=== PATIENT | male | born 1980 | race Caucasian/White ===

== ENCOUNTER 2021-06-28 22:32 | Observation (INO) | payer OTHER, SELFPAY ==
--- NOTE | ~2021-06-28 | CT_ITS ---
EXAMINATION: CT soft tissue neck w con EXAM DATE: 06/29/2021 00:48 INDICATION: Swelling neck. TECHNIQUE: Spiral CT of the neck was performed following intravenous injection of 75 mL Omnipaque 350 . Axial, coronal and sagittal images were reviewed. The dose-length product (DLP) for this examinat ion was 686.86 mGy-cm. The exposure was tailored according to patient size (auto mA exposure control ), and iterative reconstruction (ASIR) was used as additional dose reduction technique. There is no prior study for comparison. FINDINGS: There is an anterior lower neck peripheral soft tissue density with central low density wit hin the subcutaneous fat, should be clinically obvious distorting the contour just left of midline. T his measures 3.1 x 2.2 cm, is superficial to the platysmas muscle. Differential diagnosis includes ab scess, enlarged sebaceous cyst with or without infection, necrotic or metastatic lymphadenopathy. The re is no definite overlying skin thickening to suggest skin cancer. Please clinically correlate for a ppropriate further workup. No other neck masses or evidence of lymphadenopathy. The superior mediasti num, prevascular space is also unremarkable. Slightly larger appearance to the left tonsillar adenoidal tissue. Epiglottis is normal in thickness. The thyroid gland is unremarkable. The submandibular and parotid glands are symmetric. The air way is unremarkable. Parapharyngeal and pre-glottic fat planes are preserved. The opacified vascu lature is patent. The orbits are unremarkable. Visualized sinuses and mastoid air cells are well aerated. Lung apices are clear. There is cervical spondylosis. IMPRESSION: Left anterior lower neck mass like region, differential diagnosis including abscess, seba ceous cyst with or without infection, necrotic lymph node or other malignancy. Please clinically alee elate for appropriate further workup or treatment. Reviewed, dictated and finalized at location A. IMPRESSION: Left anterior lower neck mass like region, differential diagnosis i ncluding abscess, sebaceous cyst with or without infection, necrotic lymph node or other malignancy. Please clinically correlate for appropriate further jacklyn p or treatment.
[2021-06-28 23:18] VITALS: BP 147/78; PULSE 67; RESP 16; TEMP 36.3; O2SAT 99
[2021-06-28 23:34] VITALS: BP 147/78; PULSE 78; RESP 16; TEMP 36.8; O2SAT 99
[2021-06-28 23:53] LABS: Basophils Absolute Auto 0.1 K/mm3 (0.0-0.1); Basophils Percent Auto 0.4 % (0.2-1.2); Eosinophils Absolute Auto 0.2 K/mm3 (0-0.3); Eosinophils Percent Auto 1.1 % (0-4.4); Hematocrit 41.9 % (42.0-52.0); Hemoglobin 13.9 g/dL (14.0-18.0); Immature Granulocyte Absolute 0.06 K/mm3 (0.00-0.031); Immature Granulocyte Percent A 0.4 % (0-0.5); Lymphocytes Absolute Auto 1.68 K/mm3 (0.9-3.2); Lymphocytes Percent Auto 11.4 % (18.3-44.2); Mean Corpuscular HGB Conc 33.2 g/dl (32-36); Mean Corpuscular Hemoglobin 31.5 pg (26-34); Mean Platelet Volume 10.4 fl (7.4-10.4); Monocytes Absolute Auto 0.8 K/mm3 (0.1-0.6); Monocytes Percent Auto 5.7 % (2.6-8.5); Platelet Count Result 242 k/mm3 (150-375); Red Blood Count 4.41 M/mm3 (4.6-6.20); White Blood Count 14.8 K/mm3 (4.5-10.0)
[2021-06-29] VITALS (10 sets, daily range): BP systolic 108–148; BP diastolic 64–97; PULSE 54–82; RESP 10–18; TEMP 36.1–36.8; O2SAT 97–100; BMI 29.9
[2021-06-29 00:08] LABS: Lactic Acid Reflex 1.4 mmol/L (0.7-2.1)
[2021-06-29 00:09] LABS: Alanine Aminotransferase 20 U/L (4-50); Albumin Level 4.9 g/dL (3.5-5.1); Alkaline Phosphatase 65 U/L (38-126); Anion Gap 14 mmol/L (8-16); Aspartate Amino Transferase 28 U/L (17-59); Bilirubin,Total 0.6 mg/dL (0.2-1.3); Blood Urea Nitrogen 13 mg/dL (9-20); Calcium 9.9 mg/dL (8.4-10.2); Carbon Dioxide 23 mmol/L (22-30); Chloride 105 mmol/L (98-107); Estimated CRCL calculation 126 ml/min; Estimated Glomerular Filt Rate > 60; Glucose 113 mg/dL (65-110); Potassium 3.7 mmol/L (3.4-5.0); Sodium 142 mmol/L (137-145)
--- NOTE | 2021-06-29 01:57 | ED.GENADULT ---
HPI - General Adult General Chief complaint: Wound/Laceration Stated complaint: abscess on neck x 1 week Time Seen by Provider: 06/28/21 23:29 Source: patient Mode of arrival: ambulatory Limitations: no limitations History of Present Illness HPI narrative: 41-year-old with no major medical problems here with complains of pain and swelling and redness to the neck for past 1 week. Patient states that he has a small cyst for past 10 years now it is getting bigger and it is now red and draining. Denies any fever or chills. No history of trauma. Onset (ago): week(s) (1) Location: neck Severity: moderate Quality: aching Pain Consistency: constant Relieving factors: none Exacerbating factors: none Associated symptoms: denies other symptoms Related Data Allergies Allergy/AdvReac Type Severity Reaction Status Date / Time No Known Allergies Allergy Verified 06/28/21 23:57 Review of Systems Review of Systems: All systems reviewed & are unremarkable except as noted in HPI and below Constitutional: Constitutional: Reports no additional constitutional complaints Eyes: Eyes: Reports no additional eye complaints ENT: Reports system reviewed and no additional complaints, except as documented Cardiovascular: Cardiovascular: Reports no additional cardiovascular complaints Respiratory: Respiratory: Reports no additional respiratory complaints Gastrointestinal: Gastrointestinal: Reports no additional gastrointestinal complaints Musculoskeletal: Musculoskeletal: Reports no additional musculoskeletal complaints Exam Narrative: GENERAL: Well-appearing, well-nourished, and in no acute distress. HEAD: Normocephalic, atraumatic. EYES: PERRLA and EOMI.. NECK: Supple. About 3.5 cm cyst on the left side of the neck mobile the skin is red and warm with purulent drainage. CHEST: Clear to auscultation. No respiratory distress. HEART: Regular rate and rhythm. No murmur heard. Normal peripheral pulses. ABDOMEN: Soft, nontender, nondistended, normal active bowel sounds. EXTREMITIES: Normal range of motion. No edema. SKIN: Warm, dry, no rash. NEURO: No focal deficits. Alert and oriented x3. PSYCH: Normal mood and affect. Course Course Emergency Course: Inform patient and s about the lab work and CT , will admit to the hospital as he is unable to tolerate the procedure in the ER. Discussed with Dr. Pacheco agreed to admit the patient Vital Signs Vital signs: Vital Signs Temperature 36.3 C L 06/28/21 23:18 Pulse Rate 67 11/03/21 23:18 Respiratory Rate 16 06/28/21 23:18 Blood Pressure 147/78 H 06/28/21 23:18 Pulse Oximetry 99 06/28/21 23:18 Temperature 36.8 C 06/28/21 23:34 Pulse Rate 78 06/28/21 23:34 Respiratory Rate 16 06/28/21 23:34 Blood Pressure 147/78 H 06/28/21 23:34 Pulse Oximetry 99 06/28/21 23:34 Procedures Abscess I/D neck: Date of Incision: 06/29/21 Side (if applicable): left Sedation/analgesia: none Local Anesthetic: lidocaine 1% Amount of anesthesia used (mL): 5 Technique: incised with #11 blade Amount of fluid expressed (mL): 3 Irrigation: No I&D Results: Other (Sebaceous material) Abcess I&D Additional Comments: Patient was unable to tolerate the procedure in the ER. Medical Decision Making Vital Signs Vital Signs: Vital Signs Temperature 36.3 C L 06/28/21 23:18 Pulse Rate 67 06/28/21 23:18 Respiratory Rate 16 06/28/21 23:18 Blood Pressure 147/78 H 06/28/21 23:18 Pulse Oximetry 99 06/28/21 23:18 Temperature 36.8 C 06/28/21 23:34 Pulse Rate 78 06/28/21 23:34 Respiratory Rate 16 06/28/21 23:34 Blood Pressure 147/78 H 06/28/21 23:34 Pulse Oximetry 99 06/28/21 23:34 Lab Data Result diagrams: 06/28/21 23:45 06/28/21 23:45 Labs: Lab Results 06/28/21 06/28/21 06/28/21 Range/Units 23:45 23:45 23:45 WBC 14.8 H (4.5-10.0) K/mm3 RBC 4.41
[2021-06-29] MEDS: KETOROLAC 30 MG/ML VIAL (*BKC) IV PUSH (02:06)
[2021-06-29] MEDS: CLINDAMYCIN 600 MG/D5W 50 ML 600 MG/50 ML PIGGYBACK 100 MG IVPB (02:06)
[2021-06-29] MEDS: LIDOCAINE HCL 1% LOCAL INJ 20 ML VIAL (02:07)
--- NOTE | 2021-06-29 02:07 | PC.NURSE ---
md administered lidocaine
--- NOTE | 2021-06-29 04:31 | ADMGEN ---
This patient, Nazario Robb, was admitted to [facility] Surg Room [id number]. Patient/family oriented to hospital policies and general routines including ID bracelet, bed and alarms, visiting hours, pain management, procedures, bathroom and other care routines, personal items, smoking policy, room service/diet, and visiting hours. Information on how to activate the Rapid Response Team has been discussed. Patient/Family are encouraged to report perceived risks to care and to ask questions if they do not understand what they are told or what they should do.
[2021-06-29] MEDS: SODIUM CHLORIDE 0.9% IV 1,000 ML 75 ML IV CONT (05:00)
--- NOTE | 2021-06-29 10:04 | PM.IMHP ---
H&P: HPI History of Present Illness Date/Time: 06/29/21 10:04 Chief Complaint: Infected area of abnormal skin left anterior neck. Narrative: patient is a pleasant overweight 41-year-old white male who presented to the emergency room last evening with a enlarged infected cystic lesion on the anterior left neck. He states that this is been present for several years. About a year ago it was bout half the size it is now. He presented to the ER because of the following findings: 41-year-old with no major medical problems here with complains of pain and swelling and redness to the neck for past 1 week. Patient states that he has had a gradually enlarging cyst on his neck for past 10 years now it got fairly suddenly bigger and it is now red and draining. Denies any fever or chills. No history of trauma. It has recently began draining some slightly yellowish bloody fluid Onset (ago): week(s) (1) Location: Lt. anterior neck Severity: moderate Quality: aching Pain Consistency: constant Relieving factors: none Exacerbating factors: none Review of Systems Review of Systems: All systems reviewed & are unremarkable except as noted in HPI and below (HPI) Constitutional: Constitutional: Reports as per HPI, Denies chills and Denies fever(s) Eyes: Eyes: Reports no additional eye complaints ENT: Reports Normal hearing present and Denies dizziness Cardiovascular: Cardiovascular: Reports no additional cardiovascular complaints, Denies chest pain and Denies irregular heart rhythm Respiratory: Respiratory: Reports no additional respiratory complaints Comments: History of 30-40 pack year of smoking. No recent shortness of breath or pneumonia Gastrointestinal: Gastrointestinal: Reports no additional gastrointestinal complaints, Denies abdominal pain and Denies bloating Genitourinary: Genitourinary: Denies hematuria Musculoskeletal: Musculoskeletal: Denies back pain Integumentary/Breasts: Skin/Breast: Reports system reviewed and no additional complaints, except as docu Neurologic: Reports Normal hearing present, Denies Abnormal speech present, Denies confusion and Denies dizziness Psychiatric: Psychiatric: Reports no additional psychiatric complaints and Denies confusion Endocrine: Endocrine: Reports no additional endocrine complaints Hematologic/Lymphatic: Hematologic/Lymphatic: Denies easy bleeding and Denies easy bruising Allergic/Immunologic: Allergic/Immunologic: Reports no additional allergic/immunologic complaints PMFSH Past Medical History Medical History Abscess of skin of neck Chronic GERD (Unknown) Infected sebaceous cyst (Unknown) Obesity Smoker (Unknown) Social History Social History Smoking packs per day: 1.5 Smoking cigarettes per day: 30.0 Years smoked: 30 Smoking pack-years: 45.00 Smoking status: Current every day smoker Tobacco type: cigarettes Alcohol intake: never Substance use type: marijuana Spiritual care concerns: No Meds Home Medications and Allergies Home Medications Medication Instructions Recorded Confirmed Type No Home Medications 06/29/21 06/29/21 History Allergies Allergy/AdvReac Type Severity Reaction Status Date / Time No Known Allergies Allergy Verified 06/28/21 23:57 Vital Signs Vital Signs - 24 hr 06/28/21 23:18 06/28/21 23:34 06/29/21 04:20 Temperature 36.3 C L 36.8 C Pulse Rate 67 78 77 Respiratory Rate 16 16 16 Blood Pressure 147/78 H 147/78 H 146/78 H Pulse Oximetry 99 99 99 06/29/21 04:25 Temperature 36.1 C L Pulse Rate 58 L Respiratory Rate 18 Blood Pressure 148/91 H Pulse Oximetry 100 Exam Const: General: cooperative, healthy appearing, comfortable, no acute distress, well developed, alert and awake; No confusion Orientation/consciousness: patient oriented x3 and No confusion HENMT: Head: normal to inspection Ears: hearing grossly normal bilaterally Face a
[2021-06-29] MEDS: NICOTINE (*PBKC) 21 MG PATCH 1 PATCH TRANSDERM (11:23)
--- NOTE | 2021-06-29 11:45 | WPDANESEPPF ---
Anes - Initial Pre Proc Eval Procedure: Operation Date: 06/29/21 13:00 Proposed Procedures p Incision and Drainage Left Neck Abscess - Remy Pacheco MD <Smith Hernandes MD - Last Filed: 07/11/21 12:24> Date/Time: 06/29/21 11:45 <Smith Hernandes MD - Last Filed: 07/11/21 12:24> Surgeon: Remy Pacheco MD <Smith Hernandes MD - Last Filed: 07/11/21 12:24> Pre Op Diagnosis: infected sebaceous cyst of the neck <Smith Hernandes MD - Last Filed: 07/11/21 12:24> Patient Data Age: 41 Gender: M Height: 1.91 m Weight: 108.86 kg <Smith Hernandes MD - Last Filed: 07/11/21 12:24> Last Vital Signs Temp 97.0 F L 06/29/21 04:25 Pulse 58 L 06/29/21 04:25 Resp 18 06/29/21 04:25 BP 148/91 H 06/29/21 04:25 Pulse Ox 100 06/29/21 04:25 <Smith Hernandes MD - Last Filed: 07/11/21 12:24> Allergies Allergy/AdvReac Type Severity Reaction Status Date / Time No Known Allergies Allergy Verified 06/28/21 23:57 <Smith Hernandes MD - Last Filed: 07/11/21 12:24> Home Medications Medication Instructions Recorded Confirmed Type hydrocodone-acetaminophen 1 tablet PO Q6H PRN #14 tablet 06/29/21 Rx sulfamethoxazole-trimethoprim 1 tablet PO Q12H #10 tablet 06/29/21 Rx [Bactrim DS] <Smith Hernandes MD - Last Filed: 07/11/21 12:24> Laboratory Tests 06/28/21 06/28/21 06/28/21 23:45 23:45 23:45 WBC 14.8 K/mm3 H K/mm3 (4.5-10.0) RBC 4.41 M/mm3 L M/mm3 (4.6-6.20) Hgb 13.9 g/dL L g/dL (14.0-18.0) Hct 41.9 % L % (42.0-52.0) MCV 95.0 fl fl (80-100) MCH 31.5 pg pg (26-34) MCHC 33.2 g/dl g/dl (32-36) RDW 12.0 % % (11.5-14.5) Plt Count 242 k/mm3 k/mm3 (150-375) MPV 10.4 fl fl (7.4-10.4) Immature Gran % (Auto) 0.4 % % (0-0.5) Neut % (Auto) 81.0 % H % (45.5-73.1) Lymph % (Auto) 11.4 % L % (18.3-44.2) [place] % (Auto) 5.7 % % (2.6-8.5) Eos % (Auto) 1.1 % % (0-4.4) Baso % (Auto) 0.4 % % (0.2-1.2) Lymph # (Auto) 1.68 K/mm3 K/mm3 (0.9-3.2) [place] # (Auto) 0.8 K/mm3 H K/mm3 (0.1-0.6) Eos # (Auto) 0.2 K/mm3 K/mm3 (0-0.3) Baso # (Auto) 0.1 K/mm3 K/mm3 (0.0-0.1) Abs Immat Gran (auto) 0.06 K/mm3 H K/mm3 (0.00-0.031) Absolute Neuts (auto) 12.0 K/mm3 H K/mm3 (1.3-6.7) Absolute Nucleated RBC 0.0 K/mm3 K/mm3 (0.0-0.012) Nucleated RBC % 0.0 % % (0.0-0.2) Sodium 142 mmol/L mmol/L (137-145) Potassium 3.7 mmol/L mmol/L (3.4-5.0) Chloride 105 mmol/L mmol/L (98-107) Carbon Dioxide 23 mmol/L mmol/L (22-30) Anion Gap 14 mmol/L mmol/L (8-16) BUN 13 mg/dL mg/dL (9-20) Creatinine 0.80 mg/dL mg/dL (0.7-1.3) Estim Creat Clear Calc 126 ml/min ml/min Estimated GFR > 60 (59 - ) Glucose 113 mg/dL H mg/dL (65-110) Lactic Acid 1.4 mmol/L mmol/L (0.7-2.1) Calcium 9.9 mg/dL mg/dL (8.4-10.2) Total Bilirubin 0.6 mg/dL mg/dL (0.2-1.3) AST 28 U/L U/L (17-59) ALT 20 U/L U/L (4-50) Alkaline Phosphatase 65 U/L U/L (38-126) Total Protein 8.0 g/dL g/dL (6.3-8.2) Albumin 4.9 g/dL g/dL (3.5-5.1) <Smith Hernandes MD - Last Filed: 07/11/21 12:24> Patient hx anesthesia problems: none <Daniel Dowling MD - Last Filed: 06/29/21 13:31> Family hx anesthesia problems: none <Daniel Dowling MD - Last Filed: 06/29/21 13:31> Results Review: All pre-operative results and documents have been reviewed as part of the pre-operative evaluation. <Smith Hernandes MD - Last Filed: 07/11/21 12:24> PMFSH Past Medical History Medical History: Medical History Abscess of skin of neck Chronic G
[2021-06-29] MEDS: LACTATED RINGERS 1,000 ML 30 ML IV CONT (11:59)
--- NOTE | 2021-06-29 14:32 | WPDHPUPDATE1 ---
History and Physical Update Update Date/Time: 06/29/21 14:32 History and Physical has been reviewed, including an updated exam of the patient. There are NO changes in the patient's condition. He did become slightly anxious on the floor prior to coming to the preop area. He received a 1 time 0.5 Xanax with a sip water. Risks, benefits, and alternatives have been discussed and questions answered. Patient agrees to proceed with procedure.
--- NOTE | 2021-06-29 15:22 | W.PM.PROC2 ---
Procedure Note - Detailed Date of Procedure 06/29/21 Pre-op Diagnosis infected epidermal cyst of the left neck Post-op Diagnosis same Procedure Performed Incision and drainage with excisional biopsy of the central overlying skin/ infected suspected epidermal cyst left neck Surgeon Remy Pacheco MD Mr[employer] Controller REBECCA Berry, [place] 1st assist Anesthesia general (Via LMA by Dr. Khari Hernandes) and local Indications Over the last week patient has developed a approximately 4 x 3 cm raised infected epidermal cyst on the left anterior neck with significant surrounding erythema with signs of infection. CT shows an elevated lymph nodes deep to this but no signs of penetration of the platysma muscle. Findings A large swollen infected epidermal cyst. It had significant yellow grumous material within it that was removed and it was packed Description of Procedure The area of the abscess was marked and time-out performed confirming patient and site of required I and D. Following this the area was prepped with chlorhexidine. The area was draped and local anesthetic infiltrated directly over the area of swelling and abscess formation. Because it appeared to be epidermal cyst and was so large and the skin so heaped up I felt I could excise the central portion of the overlying skin and it would fall down a close in nicely. Therefore, in order to get a biopsy make sure this was not something to worry about I outlined an elliptical excision about 1 cm wide of the skin directly overlying this cyst. Local anesthetic was infiltrated along these lines. I used a 15 blade knife to excise the skin and some of the underlying cyst cavity. Since Dr. Mesa at the ED last night opened this initially with a small slit under local and took a culture I decided not to send another culture. Following this the area was packed with 1/2 inch iodoform Nu Gauze. The area was then covered with 4x4s and tape. Implants none Estimated Blood Loss -7.0 Drains No Packing Yes (Half-inch iodoform Nu Gauze) Pathology yes (Ellipse of skin overlying the suspected epidermal cyst, left neck) Complications No immediate complications Condition stable Disposition PACU
[2021-06-29] MEDS: HYDROcodone/acetaminophen (*CRX) 5-325 MG TABLET 1 TAB PO (16:37)
--- NOTE | 2021-06-29 18:32 | PM.DS ---
DS: Admitting Diagnosis Discharge Date 06/29/2021 Admitting Diagnosis large inflamed epidermal cyst with abscess left side of neck DS: Discharge Diagnosis Discharge Diagnosis (1) Obesity: Code(s): E66.9 - Obesity, unspecified Status: Acute Assessment and Plan: Patient instructed to try to stay on all held heart healthy diet. (2) Smoker: Onset Date: Unknown Code(s): F17.200 - Nicotine dependence, unspecified, uncomplicated Status: Acute Assessment and Plan: discussed with patient poor we will wound healing well smoking and provided with information regarding cessation of smoking. Discussed this with his significant other after his surgery also. (3) Chronic GERD: Onset Date: Unknown Code(s): K21.9 - Gastro-esophageal reflux disease without esophagitis Status: Acute Assessment and Plan: Courage the patient to see a PCP and get up back on acid lowering drugs for this if needed. Needs further evaluation. (4) Infected sebaceous cyst: Onset Date: Unknown Code(s): L72.3 - Sebaceous cyst; L08.9 - Local infection of the skin and subcutaneous tissue, unspecified Status: Acute Assessment and Plan: This was the main reason for his hospitalization. He could not tolerate attempted incision drainage in the ER. Therefore he was admitted he has his anxiety treated with Xanax and he had a anesthesia for excision of the central part of the skin overlying his large epidermal cyst along with a VAC UH in the groin most material for hand infection and packing. He seems significantly improved afterwards. (5) Abscess of skin of neck: Code(s): L02.11 - Cutaneous abscess of neck Status: Acute Assessment and Plan: See infected sebaceous cyst above. Culture was done in the ER. Will follow up on this is an outpatient. DS: Summary Hospital Course Reason for hospitalization: infected large pre epidermal cyst left anterior neck with surrounding cellulitis Hospital Course: patient was admitted as a 23 hour observation after he did not tolerate local anesthetic drainage of an infected epidermal cyst which was 3 by 4 cm in size on this anterior left neck. He was kept NPO and subsequently taken to the operating room for a excision of I op see of its surface along with drainage of the cyst contents and the infection within it. Patient tolerated that well under light general anesthesia with an LMA. To or 3 hours postoperatively was tolerating a diet felt he could handle the pain with pain pills and had received his last dose of IV IV antibiotics. Therefore he was sent home on Bactrim for 5 days along with pain pills to be used during his dressing changes. Instructions were given for dressing changes and his significant other will be helping him. Time spent discussing smoking cessation with patient: 3 to 10 minutes Status at Discharge Functional status at discharge: independent ambulation Overall status at discharge: patient is back to baseline Time Spent with Patient Time attestation: Total time spent providing and/or coordinating discharge services: Time spent: Less than 30 minutes Exam Const: General: cooperative, comfortable, alert and awake Orientation/consciousness: patient oriented x3 HENMT: Mouth: Yes moist mucous membranes Other: Normal except dressing over the area of his infected skin lesion left anterior neck with some exudate coming through the 4x4s but no drainage external to the dressing. Wound care instructions sent home on discharge summary. Eyes: Sclera: sclerae normal Pupils: Equal, round and reactive pupils present Neck: Neck: normal visual inspection and no JVD Chest: Chest palpation & inspection: normal inspection of the chest Resp: Effort & Inspection: normal respiratory effort Auscultation: clear to auscultation bilaterally Cardio: Jugular venous distension: no JVD Rate: regular rate Neuro: General
== END 2021-06-29 19:00 | disposition home or self-care (01) ==
LOC: ANHED 06-29 02:47 → ANH3MEDSUR 06-29 03:10
PROVIDERS: Admitting Provider Surgery; Emergency Provider Family Medicine; Visit Provider Surgery
PROC: (CPT 10061; principal; 2021-06-29 13:00)
DX: L72.3 Sebaceous cyst (principal); L08.9 Local infection of the skin and subcutaneous tissue, unspecified; F17.210 Nicotine dependence, cigarettes, uncomplicated; E66.9 Obesity, unspecified; Z68.30 Body mass index [BMI] 30.0-30.9, adult
CPT/HCPCS: 10061; 10060; 36415; 70491; 80053; 83605; 85025; 87040; 87070; 87205; 88304; 88305; 96361; 96365; 96367; 96375; 96376; 99285; A9270; G0378; G0379; J0690; J1100; J1885; J2250; J2405; J2704; J3010; J7030; J7120; Q9967